=== PATIENT | male | born 1990 | race Caucasian/White ===

== ENCOUNTER 2016-10-05 12:41 | Emergency (ER) | payer BC, OTHER ==
[2016-10-05 12:56] VITALS: BP 133/68; PULSE 56; TEMP 97.8; BMI 33.2
--- NOTE | 2016-10-05 13:55 | PDOC ---
Suture Removal/Wound Check HPI - History of Present Illness Chief Complaint: Suture/Staple Removal(Here) Stated Complaint: SUTURES, FOLLOW-UP Time Seen by Provider: 10/05/16 13:15 History Source: Yes: Patient Treated at: Other ED Date of Last ED visit: 10/02/16 - Previous ED Treatment Type of procedure performed on last visit: Yes: Laceration Repair Tetanus Immunization: Yes: Given at last ED visit Past History - Past Medical History Allergies/Adverse Reactions: Allergies No Known Allergies Allergy (Verified 10/05/16 12:56) Home Medications: Ambulatory Orders NK [No Known Home Medication] 05/09/14 Surgical History: Yes: No Surgical History - Immunization History Immunizations Up to Date: Yes - Social History Smoking History: Yes Smoking Status: Former smoker Years of Tobacco Use: 10 Number of Ciarettes Per Day: 20 Cigars Per Day: 0 Alcohol Use: none Drug Use: none Suture Removal/Wound Check PE - Physical Exam Laceration/Wound Check Symptoms: denies: Pain, Fever, Chills, Redness Current Severity Level: None Location of Laceration/Wound: right: Wrist (well healind laceration to dorsum of R wrist w/ sutures intact) *Review of Systems - Review of Systems Constitutional: No: Chills, Fever Integumentary: No: Erythema Medical Decision Making - Medical Decision Making 10/05/16 13:56 26 yo M, no sig hx, here for wound check of laceration. States he sustained laceration to R wrist 4 days ago and was seen at another hospital for suture repair. States he decided to come here today for wound check as he resides in the area. Denies any pain, erythema, fever or chills at this point. Patient well-appearing with well healing laceration to dorsum of R wrist, no signs of infection. Dc for suture removal in 3 days *DC/Admit/Observation/Transfer Diagnosis at time of Disposition: Visit for wound check - Discharge Dispostion Disposition: HOME Condition at time of disposition: Good - Referrals Referrals: Mily Shell MD [Primary Care Provider] - - Patient Instructions Additional Instructions: Sutures are removed in 4 days ()
== END 2016-10-05 13:49 | disposition home or self-care (01) ==
LOC: JERFT 12:41
DX: Z09 Encounter for follow-up examination after completed treatment for conditions other than malignant neoplasm (principal)
CPT/HCPCS: 99281-25

== ENCOUNTER 2016-10-08 12:12 | Emergency (ER) | payer OTHER ==
[2016-10-08 12:24] VITALS: BP 147/66; PULSE 104; TEMP 97.7; BMI 33.2
--- NOTE | 2016-10-08 12:56 | PDOC ---
[id number]) Stated Complaint: REMOVING STITCHES Time Seen by Provider: 10/08/16 12:30 History Source: Yes: Patient Treated at: [facility] ED Date of Last ED visit: 10/05/16 - Previous ED Treatment Tetanus Immunization: Yes: Up to Date - Onset of Previous Treatment Comment:: 10/08/16 13:06 CHIEF COMPLAINT: Here For suture removal right wrist HISTORY OF PRESENT ILLNESS: Pt is a 26 year old male with no significant medical history here today for suture removal of his right dorsal wrist. Patient reports that he was sutured at a hospital in [facility] on 2016 patient came here on 10/05/2016 for wound check. Patient thought he was supposed to come back today for suture removal. Patient reports that he has only been applying bacitracin ointment to wound has not been cleansing it with water was told not to get it wet. Is up-to-date with tetanus. Patient denies any discharge from wound or any tenderness of area. Past History - Past Medical History Allergies/Adverse Reactions: Allergies No Known Allergies Allergy (Verified 10/08/16 12:21) Home Medications: Ambulatory Orders NK [No Known Home Medication] 05/09/14 Surgical History: Yes: No Surgical History - Immunization History Immunizations Up to Date: Yes - Social History Smoking History: Yes Smoking Status: Former smoker Years of Tobacco Use: 10 Number of Ciarettes Per Day: 20 Cigars Per Day: 0 Alcohol Use: none Drug Use: none Suture Removal/Wound Check PE - Physical Exam Laceration/Wound Check Symptoms: reports: None Current Severity Level: None Maximum Severity Level: None Location of Laceration/Wound: right: Wrist (dorsal wrist ) Comments: 10/08/16 13:25 Pain Radiation: None Comments: 10/08/16 13:26 MS: right wrist/all digits Full range of motion Neuro: rt. hand/fingers/wrist good sensory discrimination SKIN: rt. dorsal wrist [address] wound edges well approximated, no surrounding erythema or edema *Review of Systems - Review of Systems Able to Perform ROS?: Yes Constitutional: No: Symptoms Reported HEENTM: No: Symptoms Reported Respiratory: No: Symptoms reported Cardiac (ROS): No: Symptoms Reported ABD/GI: No: Symptoms Reported : No: Symptoms Reported Integumentary: Yes: Other (right dorsal wrist 2 wounds with sutures placed in [place] ) Procedures - Consent Consent obtained: From Patient - Additional Procedures Progress: 10/08/16 13:10 Wound on right dorsal wrist 12 sutures intact wound edges well approximated no signs of infection noted area cleansed with Betadine and normal saline 0.9% dried and tiny amount of bacitracin ointment applied with Telfa and Paradise Medical Decision Making - Medical Decision Making 10/08/16 13:09 Pt is a 26 year old male with no significant medical history here today for suture removal of his right dorsal wrist. Patient reports that he was sutured at a hospital in [facility] on 10/02/2016 patient came here on 2016 for wound check. Patient thought he was supposed to come back today for suture removal. Patient reports that he has only been applying bacitracin ointment to wound has not been cleansing it with water was told not to get it wet. Is up-to-date with tetanus. Patient denies any discharge from wound or any tenderness of area. Dorsal wrist wound check no signs of infection noted wound edges well approximated Plan: Cleansed right dorsal wrist with Betadine and normal saline 0.9% area was dried and tiny amount of bacitracin ointment applied with Telfa and Paradise Patient was informed that he needs to cleanse this twice daily with antibacterial soap and water pat dry and apply bacitracin cover with dressing when out of the home let air out at night. Patient was informed that he needs to come back here on 10/14/2016 for suture removal or sooner if any redness around wound or discharge from wound. *DC/Admit/Observation/Transfer Diagnosis at time of Disposition: Visit for wound check - Discharge Dispostion Disposition: HOME Condition at time of disposition: Stable - Patient Instructions Additional Instructions: cleanse wound twice daily with antibacterial soap and water pat dry and apply a tiny amount of bacitracin ointment cover with dressing when out of house let air out at night Return here on 10/14/2016 for suture removal or sooner if any redness around wound or discharge from wound Patient voiced understanding of discharge instructions and all questions were answered - Post Discharge Activity Work/School Note: Back to Work
== END 2016-10-08 13:02 | disposition home or self-care (01) ==
LOC: JERFT 12:12
DX: Z09 Encounter for follow-up examination after completed treatment for conditions other than malignant neoplasm (principal)
CPT/HCPCS: 99281-25

== ENCOUNTER 2016-10-14 13:10 | Emergency (ER) | payer OTHER ==
[2016-10-14 13:17] VITALS: BP 132/69; PULSE 57; TEMP 98; BMI 33.2
--- NOTE | 2016-10-14 13:22 | PDOC ---
Suture Removal/Wound Check HPI - History of Present Illness Chief Complaint: Suture/Staple Removal (other) Stated Complaint: SUTURE REMOVAL Time Seen by Provider: 10/14/16 13:18 History Source: Yes: Patient, Old Records Exam Limitations: Yes: No Limitations Date of Last ED visit: 10/05/16 - Previous ED Treatment Type of procedure performed on last visit: Yes: Other (Wound check for laceration repair performed 10/08/16 at an outside hospital) Past History - Past Medical History Allergies/Adverse Reactions: Allergies No Known Allergies Allergy (Verified 10/14/16 13:17) Home Medications: Ambulatory Orders NK [No Known Home Medication] 05/09/14 Surgical History: Yes: No Surgical History - Immunization History Immunizations Up to Date: Yes - Social History Smoking History: Yes Smoking Status: Former smoker Years of Tobacco Use: 10 Number of Ciarettes Per Day: 20 Cigars Per Day: 0 Alcohol Use: none Drug Use: none *Review of Systems - Review of Systems Constitutional: No: Chills, Fever Integumentary: No: Erythema, Pruritus Medical Decision Making - Medical Decision Making 10/14/16 13:31 A/P: Wound well-approximated. Sutures removed. Bacitracin and sterile dressing applied. Followup instructions and return precautions reviewed. *DC/Admit/Observation/Transfer Diagnosis at time of Disposition: Encounter for removal of sutures - Discharge Dispostion Disposition: HOME Condition at time of disposition: Stable Admit: No - Referrals Referrals: Mily Shell MD [Primary Care Provider] - - Patient Instructions Printed Discharge Instructions: DI for Suture Removal Additional Instructions: -Continue Bacitracin/wrapping the wound -Return for redness around the wound or any other concerning symptoms
== END 2016-10-14 13:33 | disposition home or self-care (01) ==
LOC: JERFT 13:10
DX: Z48.02 Encounter for removal of sutures (principal)
CPT/HCPCS: 99281-25